=== PATIENT | female | born 1985 ===

== ENCOUNTER → 2023-07-08 06:14 | Day surgery (SDC) | payer BC, SELFPAY | LOC: GI 06:14 | PROVIDERS: ATTENDING PHYSICIAN Surgery | DX: K62.5 Hemorrhage of anus and rectum (principal); Z98.0 Intestinal bypass and anastomosis status; K64.8 Other hemorrhoids; D12.5 Benign neoplasm of sigmoid colon; D12.3 Benign neoplasm of transverse colon | CPT/HCPCS: 45385; 45380; 88305 ==